=== PATIENT | female | born 1965 | race Caucasian/White ===

== ENCOUNTER 2016-12-18 13:51 | Emergency (ER) | payer OTHER, BC ==
[2016-12-18] MEDS ORDERED: IBUPROFEN 800 MG TABLET PO ONE (14:02)
--- NOTE | 2016-12-18 14:02 | ER Document Report ---
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 C /O left hip left elbow pain, neck pain. Denies change of LOC. Reports it happened at 0900 but she has been sitting at the urgent care. C Collar placed I have greeted and performed a rapid initial assessment of this patient. A comprehensive ED assessment and evaluation of the patient, analysis of test results and completion of the medical decision making process will be conducted by additional ED providers. - Related Data Allergies/Adverse Reactions: codeine Allergy (Verified 12/18/16 14:01) naproxen Allergy (Verified 12/18/16 14:01) Sulfa (Sulfonamide Antibiotics) Allergy (Verified 12/18/16 14:01)
--- NOTE | 2016-12-18 16:53 | ER Document Report ---
ED Fall - General Chief Complaint: Fall Stated Complaint: FALL AT WORK Mode of Arrival: Wheelchair Information source: Patient Notes: 51 y/o F presents to ED c/o left sided neck, elbow, and hip pain s/p mechanical fall. 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 Denies striking head or losing consciousness. States pain is worse with movement and weight bearing. Denies extremity weakness/numbness/tingling, swelling, color changes, saddle numbness or incontinence. States not on any anticoagulants. TRAVEL OUTSIDE OF THE [place] IN LAST 30 DAYS: No - HPI Occurred: This afternoon Where: Work Context: Tripped, Fell from standing Associated symptoms: None Location of injury/pain: Elbow, Hip, Neck Quality of pain: Achy Severity: Moderate Pain Level: 3 Prehospital interventions: C-collar - Related data Allergies/Adverse Reactions: codeine Allergy (Verified 12/18/16 14:01) naproxen Allergy (Verified 12/18/16 14:01) Sulfa (Sulfonamide Antibiotics) Allergy (Verified 12/18/16 14:01) Past Medical History - General Information source: Patient - Social History Smoking Status: Never Smoker Chew tobacco use (# tins/day): No Frequency of alcohol use: None Drug Abuse: None Lives with: Family Family History: Reviewed & Not Pertinent Patient has suicidal ideation: No Patient has homicidal ideation: No - Past Medical History Cardiac Medical History: Reports: Hx Hypertension Endocrine Medical History: Reports: Hx Hypothyroidism Renal/ Medical History: Denies: Hx Peritoneal Dialysis Psychiatric Medical History: Reports: Hx Depression Surgical Hx: Negative - Immunizations Hx Diphtheria, Pertussis, Tetanus Vaccination: Yes Review of Systems - Review of Systems Constitutional: No symptoms reported EENT: No symptoms reported Cardiovascular: No symptoms reported Respiratory: No symptoms reported Gastrointestinal: No symptoms reported Genitourinary: No symptoms reported Female Genitourinary: No symptoms reported Musculoskeletal: See HPI Skin: No symptoms reported Hematologic/Lymphatic: No symptoms reported Neurological/Psychological: No symptoms reported -: Yes All other systems reviewed and negative Physical Exam - Vital signs Vitals: Temp Pulse Resp BP Pulse Ox 97.4 F 66 15 128/75 H 99 12/18/16 13:56 12/18/16 13:56 12/18/16 13:56 12/18/16 13:56 12/18/16 13:56 Interpretation: Normal - General General appearance: Appears well, Alert In distress: None - HEENT Head: Normocephalic, Atraumatic Eyes: Normal Conjunctiva: Normal Extraocular movements intact: Yes Pupils: PERRL Ears: Normal External canal: Normal Tympanic membrane: Normal Sinus: Normal Nasal: Normal Mouth/Lips: Normal Mucous membranes: Normal, Moist Pharynx: Normal Neck: Normal. No: Anterior cervical chain, Posterior cervical chain, Lymphadenopathy, Meningismus, Subcutaneous emphysema - Respiratory Respiratory status: No respiratory distress Chest status: Nontender Breath sounds: Normal Chest palpation: Normal - Cardiovascular Rhythm: Regular Heart sounds: Normal auscultation Murmur: No Pulses: Normal: Radial, Posterior tibial, Dorsalis pedis Normal capillary refill: Yes - Abdominal Inspection: Normal Distension: No distension Bowel sounds: Normal Tenderness: Nontender Organomegaly: No organomegaly - Back Back: Tender - tenderness with palpation to left paraspinal/trapezius musculature at lower cervical level. Full ROM without paresthesias or neurologic deficits.. No: Normal, Nontender, Deformity/step-off, CVA tenderness , Vertebra tenderness, Scars, Scoliosis, Wounds, Other - Extremities General upper extremity: Normal inspection, Nontender, Normal color, Normal ROM , Normal strength, Normal temperature. No: Tender, Edema General lower extremity: Normal inspection, Nontender, Normal color, Normal ROM , Normal strength, Normal temperature, Normal weight bearing. No: Tender, Edema Shoulder: Normal, Nontender Arm: Normal, Nontender Elbow: Tender - Tenderness to palpation, superficial abrasion, and mild localized bruising to lateral and posterior aspect of the left elbow. Full range of motion and distal motor and neurovascular function intact., Ecchymosis. No: Normal, Nontender, Abrasion, Deformity, Dislocation, Instability, Joint effusion, Laceration, Limited ROM, Swollen bursa, Other Forearm: Normal Wrist: Normal, Nontender Hand: Normal, Nontender Hip: Tender - Tenderness to palpation and pain with range of motion to lateral aspect of left hip. Patient states also painful with weightbearing however able to take steps independently. Distal motor and neurovascular function intact., Pain with ROM. 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 CT scan of cervical spine and left elbow x-ray unremarkable. Left hip x-ray shows area of questionable possible acute small avulsion fracture versus physiologic/old fracture per radiologist. Discussed patient presentation and findings with ED physician Dr. Smith who recommends outpatient follow-up with pcp and orthopedics. Pt declined crutches. Patient appears stable for discharge and agrees with home care, follow-up, and ED return precautions. - Vital Signs Vital signs: Temp Pulse Resp BP Pulse Ox 98 F 68 20 118/72 100 12/18/16 17:49 12/18/16 17:49 12/18/16 17:49 12/18/16 17:49 12/18/16 17:49 - Diagnostic Test Radiology reviewed: Image reviewed, Reports reviewed Discharge - Discharge Clinical Impression: Fall Qualifiers: Encounter type: initial encounter Qualified Code(s): W19.XXXA - Unspecified fall, initial encounter Cervical strain Qualifiers: Encounter type: initial encounter Qualified Code(s): S16.1XXA - Strain of muscle, fascia and tendon at neck level, initial encounter Elbow contusion Qualifiers: Encounter type: initial encounter Laterality: left Qualified Code(s): S50.02XA - Contusion of left elbow, initial encounter Avulsion fracture of left hip Qualifiers: Encounter type: initial encounter Fracture type: closed Qualified Code(s): S72.002A - Fracture of unspecified part of neck of left femur, initial encounter for closed fracture Condition: Stable Disposition: HOME, SELF-CARE Instructions: Avulsion Fracture ([facility]), Neck Injury (Cervical Strain) ([facility]), Contusion ([facility]), Use of [id number] Ibuprofen ([facility]), Muscle Relaxers ([facility]) , Oral Narcotic Medication ([facility]), Ice Packs ([facility]) Additional Instructions: Follow-up with your primary care provider and Orthopedics on Tuesday as discussed. Return to the Emergency Department for any worsening symptoms or concerns. Prescriptions: Methocarbamol [Robaxin 500 mg Tablet] 500 mg PO Q8HP PRN #10 tablet PRN Reason: Hydrocodone/Acetaminophen [[place] 5-325 mg Tablet] 1 tab PO Q6H PRN #10 tablet PRN Reason: Forms: Return to Work Referrals: KOKO JIMÉNEZ MD [ACTIVE STAFF] - 12/20/16
[2016-12-18 17:51] VITALS: BP 118/72
== END 2016-12-18 17:49 | disposition home or self-care (01) ==
LOC: ER 13:51
DX: S50.02XA Contusion of left elbow, initial encounter (principal); S72.002A Fracture of unspecified part of neck of left femur, initial encounter for closed fracture; S16.1XXA Strain of muscle, fascia and tendon at neck level, initial encounter; W01.0XXA Fall on same level from slipping, tripping and stumbling without subsequent striking against object, initial encounter; Y99.0 Civilian activity done for income or pay; Z88.6 Allergy status to analgesic agent; Z88.2 Allergy status to sulfonamides; I10 Essential (primary) hypertension; E03.9 Hypothyroidism, unspecified
CPT/HCPCS: 99284; 73070; 73502; 72126; L0120

== ENCOUNTER 2017-10-21 19:38 | Emergency (ER) | payer BC, OTHER ==
[2017-10-21] MEDS ORDERED: IBUPROFEN 800 MG TABLET PO ONE (22:48)
--- NOTE | 2017-10-21 22:48 | ER Document Report ---
ED Hand/Wrist Injury - General Chief Complaint: Wrist Pain Stated Complaint: WRIST PAIN Time Seen by Provider: 10/21/17 22:48 Mode of Arrival: Ambulatory Information source: Patient Notes: Patient is a 52-year-old female who presents to the ER today for right wrist pain 1 week. 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 Patient denies any numbness or tingling, injury to the wrist. She states that it started to get shooting pains up to her elbow. TRAVEL OUTSIDE OF THE [place] IN LAST 30 DAYS: No - Related Data Allergies/Adverse Reactions: codeine Allergy (Verified 10/21/17 19:40) naproxen Allergy (Verified 10/21/17 19:40) Sulfa (Sulfonamide Antibiotics) Allergy (Verified 10/21/17 19:40) Past Medical History - General Information source: Patient - Social History Smoking Status: Unknown if Ever Smoked Family History: Reviewed & Not Pertinent - Past Medical History Cardiac Medical History: Reports: Hx Hypertension Endocrine Medical History: Reports: Hx Hypothyroidism Renal/ Medical History: Denies: Hx Peritoneal Dialysis Psychiatric Medical History: Reports: Hx Depression Past Surgical History: Reports: Hx Cholecystectomy, Hx Hysterectomy, Hx Tonsillectomy - adnoidectomy - Immunizations Hx Diphtheria, Pertussis, Tetanus Vaccination: Yes Review of Systems - Review of Systems Constitutional: No symptoms reported EENT: No symptoms reported Cardiovascular: No symptoms reported Respiratory: No symptoms reported Gastrointestinal: No symptoms reported Genitourinary: No symptoms reported Female Genitourinary: No symptoms reported Musculoskeletal: See HPI Skin: No symptoms reported Hematologic/Lymphatic: No symptoms reported Neurological/Psychological: No symptoms reported Physical Exam - Vital signs Vitals: Temp Pulse BP Pulse Ox 98.4 F 60 120/69 98 10/21/17 19:46 10/21/17 19:46 10/21/17 19:46 10/21/17 19:46 - Notes Notes: PHYSICAL EXAMINATION: GENERAL: Well-appearing and in no acute distress. HEAD: Atraumatic, normocephalic. EYES: Pupils equal round and reactive to light, extraocular movements intact, sclera anicteric, conjunctiva are normal. NECK: Normal range of motion, supple without lymphadenopathy LUNGS: CTAB and equal. No wheezes rales or rhonchi. HEART: Regular rate and rhythm without murmurs EXTREMITIES: Normal range of motion but with pain on flexion of the right wrist , Tinel's and Phalen's sign positive for numbness and pain, wrist nontender, no pitting edema. No cyanosis. NEUROLOGICAL: Cranial nerves grossly intact. Normal sensory/motor exams. PSYCH: Normal mood, normal affect. SKIN: Warm, Dry, normal turgor, no rashes or lesions noted Course - Re-evaluation Re-evalutation: 10/21/17 23:43 X-ray negative for any acute pathology of the right wrist. Patient placed in cockup brace here and advised to wear at night especially. I will give her anti -inflammatories for right wrist sprain versus carpal tunnel. 10/21/17 23:44 - Vital Signs Vital signs: Temp Pulse Resp BP Pulse Ox 98.4 F 60 120/69 98 10/21/17 19:46 10/21/17 19:46 10/21/17 19:46 10/21/17 19:46 Discharge - Discharge Clinical Impression: Right wrist pain Condition: Stable Disposition: HOME, SELF-CARE Additional Instructions: Return immediately for any new or worsening symptoms. Follow up with primary care provider, call tomorrow to make followup appointment. Please wear the brace at night especially when you sleep. Prescriptions: Ibuprofen [Motrin 800 mg Tablet] 800 mg PO Q8H PRN #30 tab PRN Reason: Forms: Return to Work
--- NOTE | 2017-10-21 23:14 | RADIOLOGY REPORT (SQ) ---
EXAM DESCRIPTION: WRIST RIGHT 3 VIEWS COMPLETED DATE/TIME: 10/21/2017 11:01 pm REASON FOR STUDY: wrist pain COMPARISON: None. NUMBER OF VIEWS: Three views. TECHNIQUE: AP, lateral, and oblique radiographic images acquired of the right wrist. LIMITATIONS: None. FINDINGS: MINERALIZATION: Normal. BONES: No acute fracture or dislocation. No worrisome bone lesions. Normal alignment. SOFT TISSUES: No soft tissue swelling. No foreign body. OTHER: No other significant finding. IMPRESSION: NEGATIVE STUDY OF THE RIGHT WRIST. NO RADIOGRAPHIC EVIDENCE OF ACUTE INJURY. TECHNICAL DOCUMENTATION: JOB ID: [id number] [employer]- All Rights Reserved
[2017-10-22 00:04] VITALS: BP 121/73
== END 2017-10-22 00:12 | disposition home or self-care (01) ==
LOC: ER 19:38
DX: M25.531 Pain in right wrist (principal); X58.XXXA Exposure to other specified factors, initial encounter
CPT/HCPCS: 99284; 73110; L3908

== ENCOUNTER 2018-10-21 16:58 | Emergency (ER) | payer OTHER, BC ==
--- NOTE | 2018-10-21 17:25 | ER Document Report ---
ED Medical Screen (RME) - General Chief Complaint: Neck and Upper Back Pain Stated Complaint: BACK PAIN Time Seen by Provider: 10/21/18 17:16 Notes: 53-year-old female patient reports she was at work at [employer] on Tuesday carrying a 30 pound box of frozen dough when she stumbled on a palate and went forward. She did not fall down. She did strain her lower cervical spine and upper thoracic spine and her lower back. She states she was off work for 2 days and was taking ibuprofen, BenGay, and using ice. She did go to work today and by mid afternoon the pain was considerably worse as it was shooting up her back into her neck, causing her to feel nauseous, with a headache and blurred vision. 911 was called and she was sent to the emergency room. I have greeted and performed a rapid initial assessment of this patient. A comprehensive ED assessment and evaluation of the patient, analysis of test results and completion of the medical decision making process will be conducted by additional ED providers. TRAVEL OUTSIDE OF THE [place] IN LAST 30 DAYS: No - Related Data Allergies/Adverse Reactions: codeine Allergy (Verified 10/21/18 17:22) naproxen Allergy (Verified 10/21/18 17:22) Sulfa (Sulfonamide Antibiotics) Allergy (Verified 10/21/18 17:22) Past Medical History - Social History Chew tobacco use (# tins/day): No Frequency of alcohol use: Occasional Drug Abuse: None - Past Medical History Cardiac Medical History: Reports: Hx Hypertension Endocrine Medical History: Reports: Hx Hypothyroidism Renal/ Medical History: Denies: Hx Peritoneal Dialysis Psychiatric Medical History: Reports: Hx Depression Past Surgical History: Reports: Hx Cholecystectomy, Hx Hysterectomy, Hx Tonsillectomy - adnoidectomy - Immunizations Hx Diphtheria, Pertussis, Tetanus Vaccination: Yes Physical Exam - Vital signs Vitals: Temp Pulse Resp BP Pulse Ox 97.7 F 68 16 133/77 H 99 10/21/18 17:06 10/21/18 17:06 10/21/18 17:06 10/21/18 17:06 10/21/18 17:06 Course - Vital Signs Vital signs: Temp Pulse Resp BP Pulse Ox 97.7 F 68 16 133/77 H 99 10/21/18 17:06 10/21/18 17:06 10/21/18 17:06 10/21/18 17:06 10/21/18 17:06 Doctor's Discharge - Discharge Referrals: NIA CARRILLO, [Primary Care Provider] - Follow up as needed
--- NOTE | 2018-10-21 18:03 | RADIOLOGY REPORT (SQ) ---
EXAM DESCRIPTION: CT CERVICAL SPINE WITHOUT COMPLETED DATE/TIME: 10/21/2018 5:48 pm REASON FOR STUDY: Lower C-spine, upper T-spine pain after a fall COMPARISON: 12/18/2016 TECHNIQUE: Axial images acquired through the cervical spine without intravenous contrast. Images re viewed with lung, soft tissue and bone windows. Reconstructed coronal and sagittal MPR images review ed. Images stored on PACS. All CT scanners at this facility use dose modulation, iterative reconstruction, and/or weight based d osing when appropriate to reduce radiation dose to as low as reasonably achievable (ALARA). [facility]: Dose Right [facility]: CareDose [facility]: Dose Right [facility]: Teradose 4D [facility]: Smart [employer] RADIATION DOSE: CT Rad equipment meets quality standard of care and radiation dose reduction techniq ues were employed. CTDIvol: 21.4 mGy. DLP: 587 mGy-cm. mGy. LIMITATIONS: None. FINDINGS: ALIGNMENT: Anatomic. MINERALIZATION: Normal. VERTEBRAL BODIES: No fractures or dislocation. DISCS: Unchanged mild loss of the C5-C6 and C6-C7 disc heights with small anterior posterior vertebra l body osteophytes. FACETS, LATERAL MASSES, POSTERIOR ELEMENTS: No acute fracture. Mild facet arthropathy. HARDWARE: None in the spine. VISUALIZED RIBS: No fractures. LUNG APICES AND SOFT TISSUES: No significant or acute findings. OTHER: No other significant finding. IMPRESSION: 1. No acute fracture or listhesis. 2. Mild degenerative disc disease and facet arthropathy of the cervical spine. TECHNICAL DOCUMENTATION: JOB ID: [id number] Quality ID # [id number]: Final reports with documentation of one or more dose reduction techniques (e.g., Au tomated exposure control, adjustment of the mA and/or kV according to patient size, use of iterative reconstruction technique) 2010 [employer]- All Rights Reserved Reading location - IP/workstation name: [email or web address]
[2018-10-21] MEDS ORDERED: LIDOCAINE 5% (700 MG) TRANSDERMAL ADH..PATCH TP ONE (19:55)
[2018-10-21] MEDS ORDERED: KETOROLAC TROMETHAMINE 60 MG/2 ML SDV IM ONE (19:55)
[2018-10-21] MEDS ORDERED: CYCLOBENZAPRINE HCL 10 MG TABLET PO ONE (19:55)
--- NOTE | 2018-10-21 19:59 | ER Document Report ---
ED General - General Chief Complaint: Neck and Upper Back Pain Stated Complaint: BACK PAIN Time Seen by Provider: 10/21/18 17:16 Notes: Patient is a 53-year-old female without chronic medical problems presents with 2 days of left-sided neck pain and intermittent headache. The patient reports she was at work at [employer] on Tuesday carrying a 30 pound box of frozen dough when she stumbled on a palate and went forward. She did not fall down. She did strain her lower cervical spine and upper thoracic spine and her lower back. She states she was off work for 2 days and was taking ibuprofen, BenGay, and using ice. She did go to work today and by mid afternoon, was again lifting and exerting herself when the the pain was considerably worsened with associated nausea prompting staff at [facility] [facility] [employer] [employer] to call 911 and have her transported to the emergency department. States her symptoms are currently improved upon arrival in the emergency department. She denies any focal weakness, numbness, fever, inability to move the neck, swelling of the neck, or any other concerns. No history of similar symptoms in the past. She has not seen her general physician regarding today's concerns. TRAVEL OUTSIDE OF THE [place] IN LAST 30 DAYS: No - Related Data Allergies/Adverse Reactions: codeine Allergy (Verified 10/21/18 17:22) naproxen Allergy (Verified 10/21/18 17:22) Sulfa (Sulfonamide Antibiotics) Allergy (Verified 10/21/18 17:22) Past Medical History - General Information source: Patient - Social History Smoking Status: Never Smoker Chew tobacco use (# tins/day): No Frequency of alcohol use: Occasional Drug Abuse: None Lives with: Spouse/Significant other Family History: Reviewed & Not Pertinent Patient has suicidal ideation: No Patient has homicidal ideation: No - Past Medical History Cardiac Medical History: Reports: Hx Hypertension Endocrine Medical History: Reports: Hx Hypothyroidism Renal/ Medical History: Denies: Hx Peritoneal Dialysis Psychiatric Medical History: Reports: Hx Depression Past Surgical History: Reports: Hx Cholecystectomy, Hx Hysterectomy, Hx Tonsillectomy - adnoidectomy - Immunizations Hx Diphtheria, Pertussis, Tetanus Vaccination: Yes Review of Systems - Review of Systems Notes: Constitutional: Negative for fever. HENT: Negative for sore throat. Eyes: Negative for visual changes. Cardiovascular: Negative for chest pain. Respiratory: Negative for shortness of breath. Gastrointestinal: Negative for abdominal pain, vomiting or diarrhea. Genitourinary: Negative for dysuria. Musculoskeletal: Positive for neck pain Skin: Negative for rash. Neurological: Positive for headache 10 point ROS negative except as marked above and in HPI. Physical Exam - Vital signs Vitals: Temp Pulse Resp BP Pulse Ox 97.7 F 68 16 133/77 H 99 10/21/18 17:05 10/21/18 17:05 10/21/18 17:05 10/21/18 17:05 10/21/18 17:05 Interpretation: Normal Notes: PHYSICAL EXAMINATION: GENERAL: Well-appearing, well-nourished and in no acute distress. HEAD: Atraumatic, normocephalic. EYES: Pupils equal round and reactive to light, extraocular movements intact, sclera anicteric, conjunctiva are normal. ENT: nares patent, oropharynx clear without exudates. Moist mucous membranes. NECK: Normal range of motion, no midline cervical spine tenderness, step-offs or deformities. No swelling or deformity to the neck. LUNGS: Breath sounds clear to auscultation bilaterally and equal. No wheezes rales or rhonchi. HEART: Regular rate and rhythm without murmurs ABDOMEN: Soft, nontender, normoactive bowel sounds. No guarding, no rebound. No masses appreciated. EXTREMITIES: Normal range of motion, no pitting or edema. No cyanosis. NEUROLOGICAL: Face symmetric. Tongue protrudes midline. Extraocular motions intact. Pupils are 2 mm and equally reactive. Normal speech, normal gait. 5 out of 5 strength in both the distal and proximal upper and lower extremities bilaterally. Sensation is grossly intact throughout. Finger to nose testing normal. Pronator drift normal. PSYCH: Normal mood, normal affect. SKIN: Warm, Dry, normal turgor, no rashes or lesions noted. Course - Re-evaluation Re-evalutation: 10/21/18 19:56 Patient presents with pain of her left paracervical muscles including the sternal cleidomastoid and trapezius area worsened by range of motion with the neck and use of the left upper extremity. Start after 2 acceleration deceleration type injuries at work 48 hours ago has been worsening over that time. The patient does note that she had some improvement until trying to lift and work again today in which she had a re-exacerbation of the pain. CT the cervical spine is noted to be normal that was obtained in triage. She has no focal neurologic deficits on examination. No visible swelling or deformity to the affected area. Neurologic exam is otherwise completely unremarkable. Clinical exam and history are not consistent with a carotid or vertebral artery dissection. Do not clinically suspect an acute cervical spine injury. No evidence of a mass or abscess to the area. I strongly advised patient to avoid further straining the area, I recommend continued use of ibuprofen at home, topical lidocaine, heat, massage and physical therapy referral. At this time will discharge with return precautions and follow-up recommendations. Verbal discharge instructions given a the bedside and opportunity for questions given. Medication warnings reviewed. Patient is in agreement with this plan and has verbalized understanding of return precautions and the need for primary care follow-up in the next 24-72 hours. - Vital Signs Vital signs: Temp Pulse Resp BP Pulse Ox 98.2 F 63 16 133/74 H 98 10/21/18 20:54 10/21/18 20:54 10/21/18 17:06 10/21/18 20:54 10/21/18 20:54 - Diagnostic Test Radiology reviewed: Reports reviewed Discharge - Discharge Clinical Impression: Neck pain on left side, Upper back pain on left side Condition: Good Disposition: HOME, SELF-CARE Additional Instructions: Your CT scan of the neck is normal today. You likely have a ligamentous strain. For your pain: Take ibuprofen 600 mg and acetaminophen 1000 mg every 6 hours together as needed for pain. Take Flexeril at night to help with sleep. Co ntinue to apply ice to the area is much your able. Please follow-up with your primary care physician if you do not have improving your symptoms in the next 1- 2 weeks. Please return immediately if you develop weakness, numbness, spreading redness from the area, or any other symptoms that are concerning to you. Avoid recurrent heavy lifting until your symptoms have completely resolved.. Prescriptions: Cyclobenzaprine HCl [Flexeril 10 mg Tablet] 10 mg PO QHS PRN #15 tablet PRN Reason: Forms: Special Work Note, Return to Work Referrals: NIA CARRILLO DO [ACTIVE STAFF] - Follow up in 3-5 days
[2018-10-21 20:56] VITALS: BP 133/74
== END 2018-10-21 20:56 | disposition home or self-care (01) ==
LOC: ER 16:58
DX: M54.2 Cervicalgia (principal); M54.6 Pain in thoracic spine; R51 Headache; X58.XXXA Exposure to other specified factors, initial encounter; Y99.0 Civilian activity done for income or pay; I10 Essential (primary) hypertension; E03.9 Hypothyroidism, unspecified; Z90.49 Acquired absence of other specified parts of digestive tract; Z90.710 Acquired absence of both cervix and uterus; Z88.6 Allergy status to analgesic agent; Z88.2 Allergy status to sulfonamides
CPT/HCPCS: 99284; 96372; 72125; J1885

== ENCOUNTER 2018-10-28 10:52 | Emergency (ER) | payer OTHER, BC ==
--- NOTE | 2018-10-28 11:33 | ER Document Report ---
ED General - General Chief Complaint: Dizziness Stated Complaint: HEADACHE Time Seen by Provider: 10/28/18 11:19 Notes: Patient is a 53-year-old who presents to the emergency department with a chief complaint of a headache. She states that this is the worst headache of her life. She states that her headache started on the 12th when she was at work. Her headache starts in the back of her neck and radiates to the front. She has been taking Motrin and Tylenol for her headache, has symptom relief of her pain but also has some associated dizziness. She was lifting a 30 pound bag of frozen though at work. She works at [employer] and has been lifting multiple times. She was seen here in the emergency department and at urgent care the day of the incident. She denies any sinus pain. She denies any ear pain. She denies any loss of consciousness. Denies nausea, vomiting, or diarrhea. Denies any weakness or numbness. He has a past medical history of hypothyroidism. TRAVEL OUTSIDE OF THE [place] IN LAST 30 DAYS: No - Related Data Allergies/Adverse Reactions: codeine Allergy (Verified 10/21/18 17:22) naproxen Allergy (Verified 10/21/18 17:22) Sulfa (Sulfonamide Antibiotics) Allergy (Verified 10/21/18 17:22) Past Medical History - Social History Smoking Status: Never Smoker Family History: Reviewed & Not Pertinent Patient has suicidal ideation: No Patient has homicidal ideation: No - Past Medical History Cardiac Medical History: Reports: Hx Hypertension Endocrine Medical History: Reports: Hx Hypothyroidism Renal/ Medical History: Denies: Hx Peritoneal Dialysis Psychiatric Medical History: Reports: Hx Depression Past Surgical History: Reports: Hx Cholecystectomy, Hx Hysterectomy, Hx Tonsillectomy - adnoidectomy - Immunizations Hx Diphtheria, Pertussis, Tetanus Vaccination: Yes Review of Systems - Review of Systems Notes: REVIEW OF SYSTEMS: CONSTITUTIONAL : Denies recent illness. Denies recent unintentional weight loss. Denies fever, chills, or sweats. EENT: Denies eye, ear, throat, or mouth pain, discharge, or symptoms. Denies nasal or sinus congestion. CARDIOVASCULAR: Denies chest pain. RESPIRATORY: Denies shortness of breath, cough, congestion, difficulty breathing, or wheezing. GASTROINTESTINAL: Denies nausea, vomiting, and diarrhea. Denies abdominal pain. Denies constipation. GENITOURINARY: Denies difficulty urinating, burning, blood in urine, urgency or frequency. MUSCULOSKELETAL: Denies neck and back pain. Denies joint pain or swelling. SKIN: Denies rash, itchiness, or lesions HEMATOLOGIC : Denies easy bruising or bleeding. LYMPHATIC: Denies swollen, painful, enlarged glands. NEUROLOGICAL: See HPI PSYCHIATRIC: Denies stress, anxiety, alteration in sleep patterns, or depression. All other systems reviewed and negative. Physical Exam - Vital signs Vitals: Temp Pulse Resp BP Pulse Ox 98.2 F 74 18 115/76 97 10/28/18 10:58 10/28/18 10:58 10/28/18 10:58 10/28/18 10:58 10/28/18 10:58 - Notes Notes: PHYSICAL EXAMINATION: GENERAL: Appears well, healthy, well-nourished, no acute distress. HEAD: Normocephalic, atraumatic. EYES: PERRL, conjunctiva normal, all extraocular movements intact, sclera nonicteric ENT: Moist mucous membranes. NECK: Supple, no noticeable swelling, redness, rash. Normal range of motion. LUNGS: Equal breath sounds bilaterally and clear to auscultation. No wheezes rales or rhonchi. CARDIOVASCULAR: S1-S2, regular rate, regular rhythm. Radial pulses 2+, normal. ABDOMEN: Normoactive bowel sounds. Soft, nontender, no guarding, no rebound tenderness, and no masses palpated. EXTREMITIES: Normal strength and range of motion, no pitting or edema. No cyanosis. NEUROLOGICAL: Moves all extremities upon command. Strength 5/5 in all extremities. PSYCH: Normal mood, normal affect. SKIN: Warm, dry. No rash, lesions, ulcerations noted. Normal skin turgor. Course - Re-evaluation Re-evalutation: 10/28/18 12:[address] is negative at this time. She does still complain of headache. She will be given Motrin and Tylenol for her headache. I suspect that her headache is due to her straining her neck at work. She will be reevaluated to see if Motrin and Tylenol helps with her pain. 10/28/18 13:35 Patient states that her pain is better, but her dizziness is still there. She will be given meclizine. She also based sent home with meclizine as needed for her dizziness. She will be sent home with Torsten for any nausea she develops. She will follow-up with the urgent care she saw in regards to her Workmen's Compensation. I have also discussed with her the importance of physical therapy or massage therapy when it comes to muscle injuries. - Vital Signs Vital signs: Temp Pulse Resp BP Pulse Ox 98.2 F 74 14 120/83 100 10/28/18 10:58 10/28/18 10:58 10/28/18 13:01 10/28/18 13:01 10/28/18 13:01 Discharge - Discharge Clinical Impression: Dizziness Headache Qualifiers: Headache type: other headache syndrome Qualified Code(s): G44.89 - Other headache syndrome Condition: Stable Disposition: HOME, SELF-CARE Instructions: Antinausea Medication ([facility]), Dizziness ([facility]) Additional Instructions: You were seen today in the emergency department for dizziness and headache. The most likely cause of your dizziness and headache is due to the muscle strain your neck. He has been given meclizine, medication for dizziness. You may take this twice a day as needed for dizziness. If you lose consciousness, lose function of your arms and legs, or have any worsening symptoms, please return to the emergency department. Please follow-up with the urgent care use were seen at on Tuesday in regards to Workmen's Compensation. Prescriptions: Meclizine HCl [Dramamine Less Drowsy] 25 mg PO BID #14 tablet Referrals: MOOSE TALLEY PA-C [Primary Care Provider] - Follow up as needed
--- NOTE | 2018-10-28 12:09 | RADIOLOGY REPORT (SQ) ---
EXAM DESCRIPTION: CT HEAD WITHOUT COMPLETED DATE/TIME: 10/28/2018 11:52 am REASON FOR STUDY: headache COMPARISON: None. TECHNIQUE: Axial images acquired through the brain without intravenous contrast. Images reviewed wi th bone, brain and subdural windows. Images stored on PACS. All CT scanners at this facility use dose modulation, iterative reconstruction, and/or weight based d osing when appropriate to reduce radiation dose to as low as reasonably achievable (ALARA). [facility]: Dose Right [facility]: CareDose [facility]: Dose Right [facility]: Teradose 4D [facility]: Smart Bab[employer] RADIATION DOSE: CT Rad equipment meets quality standard of care and radiation dose reduction techniq ues were employed. CTDIvol: 53.2 mGy. DLP: 991 mGy-cm. mGy. LIMITATIONS: None. FINDINGS: VENTRICLES: Normal size and contour. CEREBRUM: No masses. No hemorrhage. No midline shift. No evidence for acute infarction. Normal gra y/white matter differentiation. No areas of low density in the white matter. CEREBELLUM: No masses. No hemorrhage. No alteration of density. No evidence for acute infarction. EXTRAAXIAL SPACES: No fluid collections. No masses. ORBITS AND GLOBE: No intra- or extraconal masses. Normal contour of globe without masses. CALVARIUM: No fracture. PARANASAL SINUSES: No fluid or mucosal thickening. SOFT TISSUES: No mass or hematoma. OTHER: No other significant finding. IMPRESSION: No acute intracranial findings. EVIDENCE OF ACUTE STROKE: NO. COMMENT: Quality ID # [id number]: Final reports with documentation of one or more dose reduction techniques (e.g., Automated exposure control, adjustment of the mA and/or kV according to patient size, use of iterative reconstruction technique) TECHNICAL DOCUMENTATION: JOB ID: [id number] [place]-72 2010 [employer]- All Rights Reserved Reading location - IP/workstation name: [employer]
[2018-10-28] MEDS ORDERED: ACETAMINOPHEN 325 MG TABLET PO ONE (12:31)
[2018-10-28] MEDS ORDERED: IBUPROFEN 600 MG TABLET PO ONE (12:31)
[2018-10-28] MEDS ORDERED: ONDANSETRON 4 MG TAB.RAPDIS PO ONE (13:10)
[2018-10-28] MEDS ORDERED: MECLIZINE HCL 25 MG TABLET PO ONE (13:33)
[2018-10-28] MEDS ORDERED: ONDANSETRON ODT 4 MG TAB (6 TAB/ER DISP) PO PRN (13:36)
[2018-10-28 13:45] VITALS: BP 120/83
== END 2018-10-28 13:50 | disposition home or self-care (01) ==
LOC: ER 10:52
DX: G44.89 Other headache syndrome (principal); R42 Dizziness and giddiness; M54.2 Cervicalgia; X50.9XXA Other and unspecified overexertion or strenuous movements or postures, initial encounter; Y99.0 Civilian activity done for income or pay; I10 Essential (primary) hypertension
CPT/HCPCS: 99284; 70450; S0119

== ENCOUNTER 2020-10-30 17:12 | Emergency (ER) | payer OTHER, BC ==
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
[2020-10-30] MEDS ORDERED: DEXAMETHASONE SOD PHOS INJ 10 MG/1 ML VIAL IM ONE (20:19)
[2020-10-30] MEDS ORDERED: IBUPROFEN 800 MG TABLET PO ONE (20:20)
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
[2020-10-30] MEDS ORDERED: ACETAMINOPHEN 325 MG TABLET PO ONE (22:00)
[2020-10-30 22:31] VITALS: BP 129/68
== END 2020-10-30 22:41 | disposition home or self-care (01) ==
LOC: ER 17:12
DX: S16.1XXA Strain of muscle, fascia and tendon at neck level, initial encounter (principal); M54.2 Cervicalgia; M54.6 Pain in thoracic spine; M41.9 Scoliosis, unspecified; R51.9 Headache, unspecified; M25.511 Pain in right shoulder; M25.512 Pain in left shoulder; V87.7XXA Person injured in collision between other specified motor vehicles (traffic), initial encounter; I10 Essential (primary) hypertension; J45.909 Unspecified asthma, uncomplicated; Z88.2 Allergy status to sulfonamides
CPT/HCPCS: 99284; 96372; 72070; 72125; J1100